=== PATIENT | female | born 1975 | race Caucasian/White ===

== ENCOUNTER 2016-10-23 22:01 | Emergency (ER) | payer OTHER ==
[2016-10-23] MEDS ORDERED: methylPREDNISolone NA SUCC 125 MG/2 ML VIAL ONE (22:20)
[2016-10-23] MEDS ORDERED: FAMOTIDINE 20 MG/50 ML IVPB 50 ML IVPB ONE (22:20)
[2016-10-23 22:24] VITALS: BMI 27.3
--- NOTE | 2016-10-23 22:29 | PDOC ---
History of Present Illness - General History Source: Patient Exam Limitations: No Limitations - History of Present Illness Initial Comments: 10/23/16 22:34 Patient is a 41 year old female with no significant past medical history who presents to the ED with hours worth of SOB, diffuse rash and decreased breath sounds. Patient states that she drank soy milk after which she developed the following symptoms. Patient has no known medication allergies. She states that this has never happened before. <Gisela Alaniz - Last Filed: 10/23/16 22:34> - General History Source: Patient <GopalSonny garrett - Last Filed: 10/24/16 03:30> - General Chief Complaint: Allergic Reaction Stated Complaint: ALLERGIC REACTION Time Seen by Provider: 10/23/16 22:29 Past History <Gisela Alaniz - Last Filed: 10/23/16 22:34> - Psycho/Social/Smoking Cessation Hx Anxiety: No Suicidal Ideation: No Smoking History: Never smoked Have you smoked in the past 12 months: No Information on smoking cessation initiated: No Hx Alcohol Use: No Drug/Substance Use Hx: No Substance Use Type: None <Sonny Rosa - Last Filed: 10/24/16 03:30> - Past Medical History Allergies/Adverse Reactions: Allergies Allergy/AdvReac Type Severity Reaction Status Date / Time No Known Allergies Allergy Verified 10/24/16 00:22 Home Medications: Ambulatory Orders Diphenhydramine HCl [Benadryl Capsules -] 25 mg PO TID #30 capsule 10/24/16 Methylprednisolone [Medrol Dose Elver] 4 mg PO ASDIR #21 tablet 10/24/16 Review of Systems - Review of Systems Able to Perform ROS?: Yes Comments:: 10/23/16 22:35 CONSTITUTIONAL: Absent: fever, chills, diaphoresis, generalized weakness, malaise, loss of appetite HEENT: Absent: rhinorrhea, nasal congestion, throat pain, throat swelling, difficulty swallowing, mouth swelling, ear pain, eye pain, visual Changes CARDIOVASCULAR: Absent: chest pain, syncope, palpitations, irregular heart rate, lightheadedness , peripheral edema RESPIRATORY: Present: SOB, decreased breath sounds. Absent: cough, dyspnea with exertion, orthopnea, wheezing, stridor, hemoptysis GASTROINTESTINAL: Absent: abdominal pain, abdominal distension, nausea, vomiting, diarrhea, constipation, melena, hematochezia GENITOURINARY: Absent: dysuria, frequency, urgency, hesitancy, hematuria, flank pain, genital pain MUSCULOSKELETAL: Absent: myalgia, arthralgia, joint swelling SKIN: Present: rash Absent: itching, pallor HEMATOLOGIC/IMMUNOLOGIC: Absent: easy bleeding, easy bruising, lymphadenopathy, frequent infections ENDOCRINE: Absent: unexplained weight gain, unexplained weight loss, heat intolerance, cold intolerance NEUROLOGIC: Absent: headache, focal weakness or paresthesias, dizziness, unsteady gait, seizure, mental status changes, bladder or bowel incontinence PSYCHIATRIC: Absent: anxiety, depression, suicidal or homicidal ideation, hallucinations. <Gisela Alaniz - Last Filed: 10/23/16 22:34> *Physical Exam - Vital Signs Last Vital Signs Temp Pulse Resp BP Pulse Ox 97.1 F L 77 18 86/53 71 L 10/23/16 22:17 10/23/16 22:17 10/23/16 22:17 10/23/16 22:17 10/23/16 22:17 - Physical Exam Comments: 10/23/16 22:36 GENERAL: Well developed, well nourished. Awake and alert. In no acute distress. HEENT: Normocephalic, atraumatic. PERRLA, EOMI. No conjunctival pallor. Sclerae are non -icteric. Moist mucous membranes. Oropharynx is clear. NECK: Supple. Full ROM. No JVD. Carotid pulses 2+ and symmetric, without bruits. No thyromegaly. No lymphadenopathy. CARDIOVASCULAR: Regular rate and rhythm. No murmurs, rubs, or gallops. Distal pulses are 2+ and symmetric. PULMONARY: (+)Decrease breath sounds bilaterally. Lungs clear to auscultation bilaterally. No wheezing, rales or rhonchi. ABDOMINAL: Soft. Non-tender. Non-distended. No rebound or guarding. No organomegaly. Normoactive bowel sounds. MUSCULOSKELETAL Normal range of motion at all joints. No bony deformities or tenderness. No CVA tenderness. EXTREMITIES: No cyanosis. No clubbing. No edema. No calf tenderness. SKIN: (+)Diffuse urticaria over the face, chest, trunk. Warm and dry. Normal capillary refill. No jaundice. NEUROLOGICAL: Alert, awake, appropriate. Cranial nerves 2-12 intact. No deficits to light touch and temperature in face, upper extremities and lower extremities. No motor deficits in the in face, upper extremities and lower extremities. Normoreflexic in the upper and lower extremities. Normal speech. Toes are downgoing bilaterally. PSYCHIATRIC: Cooperative. Good eye contact. Appropriate mood and affect. <Gisela Alaniz - Last Filed: 10/23/16 22:34> - Vital Signs Last Vital Signs Temp Pulse Resp BP Pulse Ox 97.1 F L 77 18 86/53 71 L 10/23/16 22:17 10/23/16 22:17 10/23/16 22:17 10/23/16 22:17 10/23/16 22:17 <Sonny Rosa - Last Filed: 10/24/16 03:30> ED Treatment Course - LABORATORY CBC & Chemistry Diagram: 10/23/16 22:30 10/23/16 22:30 <Sonny Rosa - Last Filed: 10/24/16 03:30> Medical Decision Making - Medical Decision Making 10/24/16 03:30 Dr. Rosa: The scribe's documentation has been prepared under my direction and personally reviewed by me in its entirery. I confirm that the note above accurately reflects all work, treatment, procedures, and medical decision making performed by me. <Sonny Rosa - Last Filed: 10/24/16 03:30> *DC/Admit/Observation/Transfer - Attestations Scribe Attestion: 10/23/16 22:37 Documentation prepared by JOE Tompkins, acting as medical communication specialist for Sonny Rosa DO. <Gisela Alaniz - Last Filed: 10/23/16 22:34> - Discharge Dispostion Admit: No <Sonny Rosa - Last Filed: 10/24/16 03:30> Diagnosis at time of Disposition: Allergic reaction Qualifiers: Encounter type: initial encounter Qualified Code(s): T78.40XA - Allergy, unspecified, initial encounter - Discharge Dispostion Disposition: HOME Condition at time of disposition: Stable - Prescriptions Prescriptions: Diphenhydramine HCl [Benadryl Capsules -] 25 mg PO TID #30 capsule Methylprednisolone [Medrol Dose Elver] 4 mg PO ASDIR #21 tablet - Referrals Referrals: Kel Christine MD [Primary Care Provider] - - Patient Instructions Printed Discharge Instructions: DI for General Allergic Reactions Additional Instructions: take medication as directed. Drink plenty of fluids. Follow up with your doctor for eventual allergy testing Print Language: DANISH
[2016-10-23 22:50] LABS: BASOPHIL 0.4 % (0-2.0); EOSINOPHIL 1.6 % (0-4.5); MCH 29.8 pg (25.7-33.7); MCHC 33.3 g/dl (32.0-36.0); MEAN CELL VOLUME 89.3 fl (80-96); PLATELET COUNT 306 K/MM3 (134-434); RDW 12.9 % (11.6-15.6); WHITE BLOOD COUNT 9.9 K/mm3 (4.0-10.0)
[2016-10-23 23:08] LABS: INR 1.1 (0.82-1.09); PROTHROMBIN TIME (PATIENT) 12.1 SEC (9.98-11.88)
[2016-10-23 23:16] LABS: ALBUMIN 3.9 g/dl (3.4-5.0); ANION GAP 11 (8-16); BILIRUBIN,TOTAL 0.4 mg/dL (0.2-1.0); CALCIUM 8.8 mg/dL (8.5-10.1); CO2 24 mmol/L (21-32); CREATININE 0.8 mg/dL (0.55-1.02); GLUCOSE,RANDOM 130 mg/dL (74-106); MAGNESIUM 2.1 mg/dL (1.8-2.4); SGOT/AST 23 U/L (15-37); SGPT/ALT 29 U/L (12-78); TOT PROT 7.5 g/dl (6.4-8.2)
[2016-10-23 23:18] LABS: ALK PHOS 51 U/L (45-117); TROPONIN I < 0.02 ng/ml (0.00-0.05)
[2016-10-24 03:47] VITALS: BP 121/72; PULSE 73; TEMP 97.9
== END 2016-10-24 03:47 | disposition home or self-care (01) ==
LOC: JER 22:01 → SUPCPDRO 22:01 → JER 10-24 03:47
DX: L50.0 Allergic urticaria (principal); T78.40XA Allergy, unspecified, initial encounter
CPT/HCPCS: 36415; 80053; 82550; 82553; 83735; 84484; 84703; 85025; 85610; 99283-25

== ENCOUNTER 2017-01-08 16:01 | Emergency (ER) | payer OTHER ==
[2017-01-08 16:26] VITALS: BP 111/61; PULSE 60; TEMP 98.3; BMI 27.3
[2017-01-08] MEDS ORDERED: KETOROLAC TROMETHAMINE 30 MG/1 ML VIAL IM ONE (17:05)
[2017-01-08] MEDS ORDERED: KETOROLAC TROMETHAMINE 30 MG/1 ML VIAL ONE (17:07)
--- NOTE | 2017-01-08 17:12 | PDOC ---
History of Present Illness - General Chief Complaint: Pain, Acute Stated Complaint: SHOULDER PAIN Time Seen by Provider: 01/08/17 16:56 History Source: Patient Exam Limitations: No Limitations - History of Present Illness Initial Comments: 01/08/17 17:06 CC left upper back pain x 2 days post lifting at work Past History - Past Medical History Allergies/Adverse Reactions: Allergies Allergy/AdvReac Type Severity Reaction Status Date / Time No Known Allergies Allergy Verified 01/08/17 16:25 Home Medications: Ambulatory Orders Diphenhydramine HCl [Benadryl Capsules -] 25 mg PO TID #30 capsule 10/24/16 Methylprednisolone [Medrol Dose Elver] 4 mg PO ASDIR #21 tablet 10/24/16 - Psycho/Social/Smoking Cessation Hx Anxiety: No Suicidal Ideation: No Smoking History: Never smoked Have you smoked in the past 12 months: No Hx Alcohol Use: No Drug/Substance Use Hx: No Substance Use Type: None Review of Systems - Review of Systems Constitutional: No: Chills, Fever HEENTM: No: Symptoms Reported Respiratory: No: Symptoms reported, Cough Musculoskeletal: Yes: Muscle Pain (lright upper back) *Physical Exam - Vital Signs Last Vital Signs Temp Pulse Resp BP Pulse Ox 98.3 F 60 18 111/61 99 01/08/17 16:25 01/08/17 16:25 01/08/17 16:25 01/08/17 16:25 01/08/17 16:25 - Physical Exam General Appearance: No: Appropriately Dressed HEENT: positive: TMs Normal Neck: negative: Tender (right lower lateral neck with spasm) Respiratory/Chest: positive: Lungs Clear. negative: Chest Tender Cardiovascular: positive: Regular Rhythm, Regular Rate Musculoskeletal: positive: Other (tender to area upper right trapezius with spasm) Medical Decision Making - Medical Decision Making 01/08/17 17:09 30mg toradol given in ED; pt driving will RX naprosyn and flexeril *DC/Admit/Observation/Transfer Diagnosis at time of Disposition: Muscle strain of chest wall Qualifiers: Encounter type: initial encounter Qualified Code(s): S29.011A - Strain of muscle and tendon of front wall of thorax, initial encounter - Discharge Dispostion Disposition: HOME Condition at time of disposition: Stable Admit: No - Patient Instructions Additional Instructions: Don'T drive while taking Flexeril; return to ED neil if no better
== END 2017-01-08 17:17 | disposition home or self-care (01) ==
LOC: JERFT 16:01
PROC: 3E0233Z Introduction of Anti-inflammatory into Muscle, Percutaneous Approach (ICD-10-PCS; principal; 2017-01-08)
DX: S29.011A Strain of muscle and tendon of front wall of thorax, initial encounter (principal); X50.0XXA Overexertion from strenuous movement or load, initial encounter; Y93.89 Activity, other specified; Y92.9 Unspecified place or not applicable
CPT/HCPCS: 96372; 99281-25

== ENCOUNTER 2018-07-04 09:51 | Emergency (ER) | payer OTHER ==
[2018-07-04 09:56] VITALS: BP 114/58; PULSE 64; TEMP 97.9; BMI 29.2
[2018-07-04] MEDS ORDERED: KETOROLAC TROMETHAMINE 30 MG/1 ML VIAL IM ONE (10:29)
[2018-07-04] MEDS ORDERED: CYCLOBENZAPRINE HCL 10 MG TABLET (FP) PO ONE (10:29)
[2018-07-04] MEDS ORDERED: KETOROLAC TROMETHAMINE 30 MG/1 ML VIAL ONE (10:32)
[2018-07-04] MEDS ORDERED: CYCLOBENZAPRINE HCL 10 MG TABLET (FP) ONE (10:32)
--- NOTE | 2018-07-04 11:32 | PDOC ---
History of Present Illness - General Chief Complaint: Back Pain Stated Complaint: LOWER BACK PAIN Time Seen by Provider: 07/04/18 10:12 History Source: Patient Exam Limitations: No Limitations Past History - Past Medical History Allergies/Adverse Reactions: Allergies Allergy/AdvReac Type Severity Reaction Status Date / Time No Known Allergies Allergy Verified 07/04/18 09:56 Home Medications: Ambulatory Orders Cyclobenzaprine HCl [Flexeril -] 10 mg PO TID #21 tablet 07/04/18 COPD: No - Suicide/Smoking/Psychosocial Hx Smoking History: Never smoked Have you smoked in the past 12 months: No Information on smoking cessation initiated: No Hx Alcohol Use: No Drug/Substance Use Hx: No Substance Use Type: None *Physical Exam - Vital Signs Last Vital Signs Temp Pulse Resp BP Pulse Ox 97.9 F 64 18 114/58 L 99 07/04/18 09:54 07/04/18 09:54 07/04/18 09:54 07/04/18 09:54 07/04/18 09:54 - Physical Exam General Appearance: No: Apparent Distress Neck: positive: Supple Respiratory/Chest: positive: Lungs Clear, Normal Breath Sounds. negative: Respiratory Distress Cardiovascular: positive: Regular Rhythm, Regular Rate, S1, S2. negative: Murmur Gastrointestinal/Abdominal: positive: Normal Bowel Sounds, Soft. negative: Tender, Distended, Guarding, Rebound Musculoskeletal: positive: Decreased Range of Motion (On movement of spine (dominic with spine flexion)), Other (+TTP along L lumbar paraspinal muscles, negative SLR test). negative: CVA Tenderness, Vertebral Tenderness Integumentary: positive: Normal Color Neurologic: positive: Fully Oriented, Alert, Normal Mood/Affect Moderate Sedation - Procedure Monitoring Vital Signs: Procedure Monitoring Vital Signs Temperature 97.9 F 07/04/18 09:54 Pulse Rate 64 07/04/18 09:54 Respiratory Rate 18 07/04/18 09:54 Blood Pressure 114/58 L 07/04/18 09:54 O2 Sat by Pulse Oximetry (%) 99 07/04/18 09:54 ED Treatment Course - Medications Given in the ED: ED Medications Discontinued Medications Generic Name Dose Route Start Last Admin Trade Name Freq PRN Reason Stop Dose Admin Cyclobenzaprine HCl 10 mg 07/04/18 10:29 07/04/18 10:37 Flexeril - PO 07/04/18 10:30 10 mg ONCE ONE Administration Ketorolac Tromethamine 30 mg 07/04/18 10:29 07/04/18 10:37 Toradol Injection - IM 07/04/18 10:30 30 mg ONCE ONE Administration Medical Decision Making - Medical Decision Making 43 y/o F with no sig pmh presents with LBP radiating down front of legs x 3 days. Denies trauma, heavy lifting. Farrell pain while walking to bed. Denies numbness/tingling/weakness of extremities, saddle/groin paresthesia, bowel/ bladder incontinence, fever, sob, cp, abd pain, n/v, urinary complaints Patient given Toradol and Flexeril with improvement in pain Likely muscle strain Stable for dc 07/04/18 11:28 *DC/Admit/Observation/Transfer Diagnosis at time of Disposition: Lower back pain Qualifiers: Chronicity: acute Back pain laterality: left Sciatica presence: without sciatica Qualified Code(s): M54.5 - Low back pain - Discharge Dispostion Disposition: HOME Condition at time of disposition: Improved Decision to Admit order: No - Prescriptions Prescriptions: Cyclobenzaprine HCl [Flexeril -] 10 mg PO TID #21 tablet - Referrals Referrals: Kel Christine MD [Primary Care Provider] - 2 Days - Patient Instructions Printed Discharge Instructions: DI for Low Back Pain Additional Instructions: Thank you for choosing [facility]. It was a pleasure taking care of you. You may take Motrin 600 mg every 4 hours by mouth as needed for mild to moderate pain. Take Motrin with food. Take Flexeril as needed for muscle spasms. This medication can also make you drowsy so please be cautious with driving or performing heavy physical work. Apply warm compresses Return to the Emergency Department if your symptoms worsen or persist, you have fever, shortness of breath, chest pain, severe abdominal pain, vomiting, dizziness, weakness of extremities (arms and/or legs), unable to walk, numbness around groin, unable to control bowel or bladder movements or other concerning symptoms. - Post Discharge Activity
== END 2018-07-04 11:38 | disposition home or self-care (01) ==
LOC: JERFT 09:51
PROC: 3E0233Z Introduction of Anti-inflammatory into Muscle, Percutaneous Approach (ICD-10-PCS; principal; 2018-07-04)
DX: M54.5 Low back pain (principal)
CPT/HCPCS: 99281-25

== ENCOUNTER → 2018-11-17 | Day surgery (SDC) | payer OTHER ==
--- NOTE | 2018-11-18 16:04 | PATH ---
Surgical Pathology Report Patient Name: ALANNA BOYER [facility]. Rec. #: [id number] /Age/Gender: 1975 (Age: 43) / F Account: [id number] Location: [facility] Taken: 11/17/2018 Received: 11/17/2018 Reported: 11/18/2018 Physicians: Adriane Aquino M.D. Specimen(s) Received LEFT BREAST 11:00 Clinical History Nonpalpable lesion Mammographic findings/ultrasound findings: Highly suspicious/malignant 1.9 cm Final Diagnosis BREAST, LEFT, 11:00, ULTRASOUND GUIDED CORE BIOPSY: INVASIVE DUCTAL CARCINOMA, MODERATELY DIFFERENTIATED, MEASURING AT LEAST 1.2 CM IN THIS MATERIAL. Results of Estrogen Receptor (ER) and Progesterone Receptor (PA) studies performed on block "1" at [facility] are as follows: ER (clone [id number] mouse monoclonal antibody by [employer]):>99% nuclear staining with strong intensity (Positive). PA (clone16 mouse monoclonal antibody by [employer]):>95% nuclear staining with moderate to strong intensity (Positive). Results of Her2 (IHC) & Ki-67 studies are pending and will be reported separately. Comment: Immunohistochemical stains performed and interpreted at [facility] show the tumor is positive for E-Cadherin, supportive of ductal phenotype. Myoepithelial markers (SMM-HC) and p63 show loss of myoepithelial cells in the invasive carcinoma. Positive and negative controls (internal if applicable) show appropriate results. Formalin fixation and cold ischemic times are within current ASCO/CAP recommendations for ER, PA and Her2 testing. Electronically Signed Deepali Goldman M.D. Addendum Reported: 11/19/2018 Addendum Diagnosis Results of Her2 (IHC) & Ki-67 studies performed on block "1" at [place], [place] ([id number]) are as follows: Her2 IHC (EP3 from [employer], formerly known as [id number], using [employer] Polymer Refine detection kit): 1+ (Negative). Ki-67: ~10% (Low proliferative index). Findings discussed with Dr. Aquino. Positive and negative controls (internal if applicable) show appropriate results. Deepali Goldman M.D. Gross Description Received in formalin labeled "left breast 11:00," are 2 egorge-yellow, cylindrical portions of fibroadipose tissue averaging 1.5 cm in length and 0.1 cm in diameter. The specimens are submitted in toto in one cassette. Time to formalin fixation: Less than one minute Total formalin fixation time: Approximately 6 hours. 11/17/201811/17/2018
== END | disposition home or self-care (01) ==
LOC: JRADUS 11:53 → JRADUS-SUR 11:53 → EDSTATUS 12:00
PROVIDERS: ATTEND Family Medicine Geriatric Medicine
PROC: 0HBU3ZX Excision of Left Breast, Percutaneous Approach, Diagnostic (ICD-10-PCS; principal; 2018-11-17)
DX: C50.812 Malignant neoplasm of overlapping sites of left female breast (principal)
CPT/HCPCS: 19083; 76642-TC-LT; 77065-TC; 87899; 88305-TC; 88341-TC; 88342-TC; A4648

== ENCOUNTER 2019-02-03 08:26 | Day surgery (SDC) | payer OTHER ==
--- NOTE | 2019-01-26 10:19 | HP ---
Admitting History and Physical - Primary Care Physician PCP: Yuliet Gaytan - Admission Chief Complaint: Left breast cancer History of Present Illness: Patient is a 43 yo female who was noted to have a spiculated asymmetric left central lesion with microcalcifications that was confirmed as a left 2 cm 11 oclock mass on US. Patient underwent an US guided core bx on 11/17/2018 which was c/w invasive ductal ER/NH positive, Her 2 negative. The MRI was c/w known cancer without evidence of multifocal or contralateral dz. History Source: Patient Limitations to Obtaining History: No Limitations - Past Medical History Additional Past Medical History: None - Past Surgical History Past Surgical History: Yes: None - Smoking History Smoking history: Never smoked Have you smoked in the past 12 months: No - Alcohol/Substance Use Hx Alcohol Use: No Home Medications - Allergies Allergies/Adverse Reactions: Allergies Allergy/AdvReac Type Severity Reaction Status Date / Time No Known Allergies Allergy Verified 07/04/18 09:56 - Home Medications Home Medications: Ambulatory Orders Cyclobenzaprine HCl [Flexeril -] 10 mg PO TID #21 tablet 07/04/18 Family Disease History - Family Disease History Other Family History: Paternal aunt-breast cancer at 70 yo Review of Systems - Review of Systems Constitutional: reports: No Symptoms Psychiatric: reports: Anxiety Physical Examination Constitutional: Yes: Well Nourished Cardiovascular: Yes: WNL Respiratory: Yes: WNL Breast(s): Yes: Other (Breasts without skin changes, nipple discharge or retraction. An asymmetric nodule was noted at 11 oclock otherwise bilaterally dense and diffusely nodular. No suspicious adenopathy noted bilaterally.) Problem List - Problems (1) Breast cancer, left Code(s): C50.912 - MALIGNANT NEOPLASM OF UNSPECIFIED SITE OF LEFT FEMALE BREAST Qualifiers: Estrogen receptor status: positive Patient sex: female Assessment/Plan Left breast WE with NL, snbx with lymphoscintogram, possible andx.
[2019-01-26 10:44] VITALS: BMI 26.5
[2019-02-03] MEDS ORDERED: ISOSULFAN BLUE 10 MG/ML VIAL SQ ONE (12:04)
[2019-02-03] MEDS ORDERED: LIDOCAINE HCL 1% PRESERVATIVE FREE - 30ML VIAL ONE (12:04)
[2019-02-03] MEDS ORDERED: BUPIVACAINE HCL/PF 2.5 MG/ML - 30 ML VIAL IJ ONE (12:04)
[2019-02-03] MEDS ORDERED: GUM MASTIC/STORAX/MSAL/ALCOHOL 1 DRP DROPSBTL MC ONE (12:17)
[2019-02-03] MEDS ORDERED: PROPOFOL 20 ML ONE (13:24)
[2019-02-03] MEDS ORDERED: MIDAZOLAM HCL 2 MG/2 ML SINGLE DOSE VIAL ONE (13:24)
[2019-02-03] MEDS ORDERED: ONDANSETRON 4 MG/2 ML VIAL ONE ×2 (13:24→15:23)
[2019-02-03] MEDS ORDERED: DEXAMETHASONE SOD PHOSPHATE 4 MG/1 ML VIAL ONE (13:24)
[2019-02-03] MEDS ORDERED: KETOROLAC TROMETHAMINE 30 MG/1 ML VIAL ONE (15:23)
[2019-02-03] MEDS ORDERED: ONDANSETRON 4 MG/2 ML VIAL IVPUSH PRN ×2 (15:26→15:35)
[2019-02-03] MEDS ORDERED: KETOROLAC TROMETHAMINE 30 MG/1 ML VIAL IVPUSH PRN (15:26)
[2019-02-03] MEDS ORDERED: DEXTROSE 5%-0.45% SALINE 1,000 ML IV SCH (15:30)
[2019-02-03] MEDS ORDERED: oxyCODONE HCL 5 MG TABLET PO PRN ×2 (15:36)
[2019-02-03 15:40] VITALS: TEMP 97.8
--- NOTE | 2019-02-03 16:30 | OP ---
DATE OF OPERATION: 02/03/2019 PREOPERATIVE DIAGNOSIS: Left breast cancer. POSTOPERATIVE DIAGNOSIS: Left breast cancer. PROCEDURE: Left mammographically localized wide excision with sentinel lymph node biopsy. ANESTHESIA: General intubated. ATTENDING SURGEON: Adriana Gaytan MD HIDE TRIMMER: ARTURO Starkey ESTIMATED BLOOD LOSS: Minimal. COMPLICATIONS: None. PROCEDURE: Patient was made aware of the risks and benefits of the procedure and consented. She was placed in the supine position and, after general anesthesia was induced, the patient was intubated. Isosulfan blue 1%, 2.5 mL were locally infiltrated into the peritumoral tissues. The operative site was then prepped and draped in the usual sterile fashion. Waiting approximately 10 minutes with gentle manual compression a curvilinear incision was made in the left axilla. Using blunt and sharp dissection tissues were dissected down and cluster of blue and hot lymph nodes were identified and surgically excised and submitted to pathology for permanent sectioning. Palpation of the rest of the axilla and interrogation with the Neoprobe found no suspicious nodes or hot spots. The wound was copiously irrigated with normal saline. Hemostasis maintained by electrocautery. The wound was then closed with deep 3-0 Vicryl followed by a running subcuticular 4-0 Monocryl. The left breast was then approached. A curvilinear periareolar incision was then made. Using electrocautery thick skin flaps were made to the needle. Needle was withdrawn through the puncture site and the wire through the wound. Tissues around the wire were then sharply excised and submitted with a short suture superior, long suture lateral. Specimen radiograph confirmed the presence of the index lesion. Specimen submitted for permanent sectioning. Additional segments were taken superior, inferior, medial, lateral, deep and anterior with clips at the new margin. The wound was copiously irrigated with normal saline. Hemostasis maintained by electrocautery. The wound was then closed with interrupted [id number] sutures in multiple layers with 2-0 Vicryl followed by deep 3-0 Vicryl followed by running subcuticular 4-0 Monocryl. Steri-Strips, sterile dressing and a compression bra were then applied, and the patient having tolerated the procedure well was transferred to the recovery room in good condition. ADRIANA GAYTAN M.D. [id number]
[2019-02-03] MEDS ORDERED: oxyCODONE HCL 5 MG TABLET ONE (17:09)
[2019-02-03 17:19] VITALS: BP 118/62; PULSE 50
--- NOTE | 2019-02-09 12:13 | PATH ---
Surgical Pathology Report Patient Name: ALANNA BOYER [facility]. Rec. #: [id number] /Age/Gender: 1975 (Age: 43) / F Account: [id number] Location: [facility] AMBULATORY Taken: 02/03/2019 Received: 02/03/2019 Reported: 02/09/2019 Physicians: Yuliet Gaytan M.D. Specimen(s) Received A: LEFT AXILLARY SENTINEL NODE B: LEFT BREAST WIDE EXCISION C: LEFT BREAST SUPERIOR MARGIN D: LEFT BREAST MEDIAL MARGIN E: LEFT BREAST ANTERIOR MARGIN F: LEFT BREAST INFERIOR MARGIN G: LEFT BREAST LATERAL MARGIN H: LEFT BREAST DEEP MARGIN Clinical History Invasive ductal carcinoma Final Diagnosis A. lymph nodES, left axillary sentinel, excision: Four lymph nodes, negative for metastatic carcinoma (0/4). B. breast, left, wide excision: Invasive ductal carcinoma, moderately differentiated (tubulE score: 3/3, nuclear grade: 2/3, mitotic score: 1/3, total score: 6/9; Slocomb grade 2). Invasive carcinoma measures 2.3 cm in greatest dimension, microscopically. Ductal carcinoma in situ (DCIS), solid and cribriform type, intermediate nuclear grade, with focal necrosis and associated calcifications is present admixed with invasive carcinoma. Invasive carcinoma extends to the anterior, deep, lateral AND MEDIAL margins. DCIS is close to (< 1 mm) the deep and lateral margins. see specimens C-h FOR final margins. No lymphovascular invasion is identified. Remaining breast tissue shows fibrocystic and columnar cell changes. Pathologic stage (pTNM): pT2 pN0. see also invasive carcinoma K. Summary. C. breast, left, superior margin, excision: Benign breast tissue. D. breast, left, medial margin, excision: FOCAL invasive ductal carcinoma and radial scar. Surgical margins are uninvolved by INVASIVE CARCINOMA; carcinoma is at 3 mm from the CLOSEST NEW margin. (SEE NOTE) Note: Myoepithelial immunohistochemical markers (SMM-HC and p63, performed at [facility] on block D3) demonstrate the lack of myoepithelial cells in the foci of invasive carcinoma. This finding supports the diagnosis. E. breast, left, anterior margin, excision: Benign breast tissue. F. breast, left, inferior margin, excision: Benign breast tissue. G. breast, left, lateral margin, excision: focal atypical lobular hyperplasia (ALH). (See note). Note: The foci of ALH are negative for E-Cadherin (performed at [facility]), which supports lobular phenotype. H. breast, left, deep margin, excision: Benign fibroadipose tissue and skeletal muscle. Comments Breast Invasive Carcinoma: Surgical Pathology Case Summary (Based on AJCC TNM 8 th edition) Procedure _X_ Excision (less than total mastectomy) Specimen Laterality _X_ Left Tumor Size _X_ Greatest dimension of largest invasive focus >1 mm (millimeters): 23 mm Histologic Type _X_ Invasive carcinoma of no special type (ductal, not otherwise specified) Histologic Grade (Slocomb Histologic Score) Glandular (Acinar)/Tubular Differentiation _X_ Score 3 (<10% of tumor area forming glandular/tubular structures) Nuclear Pleomorphism _X_ Score 2 Mitotic Rate _X_ Score 1 Overall Grade _X_ Grade 2 (scores of 6 or 7) Tumor Focality _X_ Single focus of invasive carcinoma Ductal Carcinoma In Situ (DCIS) _X_ DCIS is present in specimen _X_ Negative for extensive intraductal component (EIC) Margins Invasive Carcinoma Margins _X_ Uninvolved by invasive carcinoma Distance from closest margin (millimeters): 3 mm from final medial margin (D) DCIS Margins _X_ Uninvolved by DCIS Distance from closest margin (millimeters): < 1 mm from deep and lateral margin in wide excision; final deep (H) and lateral (G) margins are negative for DCIS. Regional Lymph Nodes _X_ Uninvolved by tumor cells Number of Lymph Nodes Examined: 4 Number of [place] Nodes Examined: 4 Treatment Effect _X_ No known presurgical therapy Lymphovascular Invasion _X_ Not identified Pathologic Stage Classification (pTNM, AJCC 8th Edition) Primary Tumor (Invasive Carcinoma) (pT) _X_ pT2: Tumor >20 mm but =50 mm in greatest dimension Regional Lymph Nodes (pN) Category (pN) _X_ pN0: No regional lymph node metastasis identified or ITCs only Biomarker Studies Results of ER and OK studies performed on or prior biopsy ([id number]) at [facility] are as follows: ER (clone [id number] mouse monoclonal antibody by [employer]) : >99 % nuclear staining with strong intensity (positive). OK (clone16 mouse monoclonal antibody by [employer]): > 95 % nuclear staining with strong intensity (positive). Results of Her2 (IHC) & Ki-67 studies performed on prior biopsy ([id number]) at [place], [place] ([id number]) are as follows: Her2 IHC (EP3 from [employer], formerly known as [id number], using [employer] Polymer Refine detection kit): 1+ (negative). Ki67: ~10 (low proliferative index). Electronically Signed Tyra Vigil M.D. Gross Description A. Received in formalin, labeled "left axillary sentinel lymph node" consist 3 lymph nodes ranging from 0.4-1.5 cm in greatest dimension. The specimen is entirely submitted in 3 cassettes. 1- one bisected lymph node. 2- two whole lymph nodes. B. Received in formalin, labeled "left breast wide excision" ,is a 3.5 x 3.5 x 2.0 cm. george-yellow, irregular, portion of fibroadipose tissue with a needle localization wire present. There is a short suture marking the superior aspect and a long suture marking the lateral aspect, per the surgeon. There is no skin present. The specimen is inked as follows: superior- red; lateral- blue; inferior -orange; medial- green; anterior- yellow; deep- black. Sectioning reveals a 2.3 x 1.6 x 1.0 cm ill-defined firm mass abutting the anterior, deep and medial margins. The specimen is serially sectioned from medial to lateral, and entirely submitted in 11 cassettes as follows: 1- medial margin; 2-9- serially sectioned specimen with mass in #6-9; 10,11- lateral margin. Time to formalin fixation: Not given Total formalin fixation time: Approximately 30 hours. C. Received in formalin labeled "left breast superior margin ", is a 1.5 x 1.0 x 0.5 cm portion of fibroadipose tissue with a clip marked the new margin, per the surgeon. The new margin is inked blue. The specimen is serially sectioned and entirely submitted in 1 cassette. D. Received in formalin labeled "left breast medial margin ", is a 2.5 x 2.1 x 0.7 cm portion of fibroadipose tissue with a clip marked the new margin, per the surgeon. The new margin is inked blue. The specimen is serially sectioned and entirely submitted in 3 cassettes. E. Received in formalin labeled "left breast anterior margin ", is a 2.5 x 1.7 x 0.3 cm portion of fibroadipose tissue with a clip marked the new margin, per the surgeon. The new margin is inked blue. The specimen is serially sectioned and entirely submitted in 2 cassettes. F. Received in formalin labeled "left breast inferior margin ", is a 2.5 x 2.0 x 0.4 cm portion of fibroadipose tissue with a clip marked the new margin, per the surgeon. The new margin is inked blue. The specimen is serially sectioned and entirely submitted in 3 cassettes. G. Received in formalin labeled "left breast lateral margin ", is a 2.0 x 2.0 x 0.4 cm portion of fibroadipose tissue with a clip marked the new margin, per the surgeon. The new margin is inked blue. The specimen is serially sectioned and entirely submitted in 2 cassettes. H. Received in formalin labeled "left breast deep margin ", is a 2.5 x 2.2 x 0.4 cm portion of fibroadipose tissue with a clip marked the new margin, per the surgeon. The new margin is inked blue. The specimen is serially sectioned and entirely submitted in 2 cassettes. KWEdy/02/05/2019 nohelia02/05/2019
== END 2019-02-03 17:39 | disposition home or self-care (01) ==
LOC: FASU 08:26
PROVIDERS: ATTEND Surgery Surgical Oncology
PROC: 0HBU0ZZ Excision of Left Breast, Open Approach (ICD-10-PCS; principal; 2019-02-03 14:09)
DX: C50.912 Malignant neoplasm of unspecified site of left female breast (principal)
CPT/HCPCS: 19281; 78195-TC; 84703; 88307-TC; 88341-TC; 88342-TC; 94760; A9541

== ENCOUNTER 2021-09-27 18:41 | Emergency (ER) | payer OTHER ==
[2021-09-27 18:46] VITALS: BP 132/64; PULSE 67; TEMP 97.7; BMI 27.4
[2021-09-27] MEDS ORDERED: LIDOCAINE 5% TOPICAL PATCH TP ONE (19:53)
[2021-09-27] MEDS ORDERED: diazePAM 2 MG TABLET PO ONE (19:53)
[2021-09-27] MEDS ORDERED: KETOROLAC TROMETHAMINE 30 MG/1 ML VIAL IM ONE (19:53)
[2021-09-27] MEDS ORDERED: LIDOCAINE 5% TOPICAL PATCH ONE (20:31)
[2021-09-27] MEDS ORDERED: KETOROLAC TROMETHAMINE 30 MG/1 ML VIAL ONE (20:32)
[2021-09-27] MEDS ORDERED: diazePAM 2 MG TABLET ONE (20:32)
[2021-09-27] MEDS ORDERED: LIDOCAINE PATCH REMOVAL MC SCH (22:00)
== END 2021-09-27 21:36 | disposition home or self-care (01) ==
LOC: JER 18:41
PROC: 3E0233Z Introduction of Anti-inflammatory into Muscle, Percutaneous Approach (ICD-10-PCS; principal; 2021-09-27)
DX: M54.50 Low back pain, unspecified (principal); M54.2 Cervicalgia; V79.49XA Driver of bus injured in collision with other motor vehicles in traffic accident, initial encounter
CPT/HCPCS: 71046-TC-FY; 93005; 93010; 99284-25

== ENCOUNTER 2022-10-16 11:46 | Day surgery (SDC) | payer OTHER ==
[~2022-10-16 11:46] MED LIST: LEUPROLIDE ACETATE 3.75 MG/KIT KIT IM ONE; traMADol HCL 50 MG TABLET PO ONE
[2022-10-16 12:41] LABS: BASO % 0.7 % (0-2.0); EOS % 6.1 % (0-4.5); HEMATOCRIT 34.5 % (32.4-45.2); HEMOGLOBIN 11.6 GM/dL (10.7-15.3); LYMPH % 18.7 % (8-40); MCH 27.1 pg (25.7-33.7); MCHC 33.7 g/dl (32.0-36.0); MEAN CELL VOLUME 80.5 fl (80-96); MEAN PLT VOLUME 8.5 fl (7.5-11.1); MONO % 9.3 % (3.8-10.2); NEUT % 65.2 % (42.8-82.8); PLATELET COUNT 344 10^3/uL (134-434); RBC 4.29 M/mm3 (3.60-5.2); WHITE BLOOD COUNT 6.4 K/mm3 (4.0-10.0)
[2022-10-16 13:03] LABS: POTASSIUM 3.8 mmol/L (3.5-5.1)
[2022-10-16 13:11] LABS: ALBUMIN 3.8 g/dl (3.4-5.0); BLOOD UREA NITROGEN 11.8 mg/dL (7-18); CALCIUM 8.8 mg/dL (8.5-10.1); MAGNESIUM 2.1 mg/dL (1.8-2.4)
[2022-10-16 13:13] LABS: BILIRUBIN,TOTAL 0.3 mg/dL (0.2-1); TOT PROT 7.7 g/dl (6.4-8.2)
[2022-10-16 13:14] LABS: BILIRUBIN,DIRECT 0.1 mg/dL (0.0-0.2); CREATININE 0.6 mg/dL (0.55-1.3)
[2022-10-16 17:34] VITALS: BP 136/76; PULSE 70; RESP 20; TEMP 98.6
[2022-10-17 08:18] LABS: FOLLICLE STIMULATING HORMONE 70.1 mIU/mL (.); LUTEINIZING HORMONE 56.5 mIU/mL (.)
== END 2022-10-16 12:00 | disposition home or self-care (01) ==
LOC: J7W 11:46 → JONCCHEMO 11:46
PROVIDERS: ATTEND Internal Medicine Hematology & Oncology
DX: Z51.11 Encounter for antineoplastic chemotherapy (principal); C50.812 Malignant neoplasm of overlapping sites of left female breast; Z17.0 Estrogen receptor positive status [ER+]
CPT/HCPCS: 36415; 80048; 80076; 82306; 82378; 82670; 82728; 83001; 83002; 83540; 83550; 83735; 84703; 85025; 86300; 96402; J1950

== ENCOUNTER 2022-10-24 10:19 | Day surgery (SDC) | payer OTHER ==
[~2022-10-24 10:19] MED LIST changes: +IRON SUCROSE INJECTION 300 MG in SODIUM CHLORIDE 250 ML IVPB ONE; -LEUPROLIDE ACETATE 3.75 MG/KIT KIT IM ONE; -traMADol HCL 50 MG TABLET PO ONE
[2022-10-24 15:55] VITALS: BP 124/82; PULSE 68; RESP 18; TEMP 98.2
== END 2022-10-24 12:35 | disposition home or self-care (01) ==
LOC: JONCNONCHE 10:19 → J7W 10:20 → JONCNONCHE 12:35
PROVIDERS: ATTEND Internal Medicine Hematology & Oncology
PROC: 3E033GC Introduction of Other Therapeutic Substance into Peripheral Vein, Percutaneous Approach (ICD-10-PCS; principal; 2022-10-24)
DX: E61.1 Iron deficiency (principal)
CPT/HCPCS: 96365; J1756

== ENCOUNTER 2022-10-30 10:48 | Day surgery (SDC) | payer OTHER ==
[2022-10-30 16:44] VITALS: TEMP 98.6
[2022-10-30 16:58] VITALS: BP 124/58; PULSE 60; RESP 20
== END 2022-10-30 13:00 | disposition home or self-care (01) ==
LOC: J7W 10:48 → JONCNONCHE 10:48
PROVIDERS: ATTEND Internal Medicine Hematology & Oncology
PROC: 3E033GC Introduction of Other Therapeutic Substance into Peripheral Vein, Percutaneous Approach (ICD-10-PCS; principal; 2022-10-30)
DX: E61.1 Iron deficiency (principal)
CPT/HCPCS: 96365; J1756

== ENCOUNTER 2022-11-15 10:09 | Day surgery (SDC) | payer OTHER ==
[~2022-11-15 10:09] MED LIST changes: +LEUPROLIDE ACETATE 3.75 MG/KIT KIT IM ONE
[2022-11-15] MEDS ORDERED: LEUPROLIDE ACETATE 3.75 MG/KIT KIT IM ONE (10:45)
[2022-11-15] MEDS ORDERED: IRON SUCROSE INJECTION 300 MG in SODIUM CHLORIDE 250 ML IVPB ONE (10:45)
[2022-11-15 11:16] LABS: BASO % 0.9 % (0-2.0); EOS % 3.6 % (0-4.5); HEMATOCRIT 35.8 % (32.4-45.2); HEMOGLOBIN 11.8 GM/dL (10.7-15.3); LYMPH % 34.2 % (8-40); MCH 27.6 pg (25.7-33.7); MEAN CELL VOLUME 83.7 fl (80-96); MEAN PLT VOLUME 8.8 fl (7.5-11.1); NEUT % 55.3 % (42.8-82.8); PLATELET COUNT 321 10^3/uL (134-434); RBC 4.27 M/mm3 (3.60-5.2); RDW 17.7 % (11.6-15.6); WHITE BLOOD COUNT 5.8 K/mm3 (4.0-10.0)
[2022-11-15 11:37] LABS: POTASSIUM 3.9 mmol/L (3.5-5.1)
[2022-11-15 11:42] LABS: ALBUMIN 3.8 g/dl (3.4-5.0); CALCIUM 9.1 mg/dL (8.5-10.1)
[2022-11-15 11:43] LABS: BLOOD UREA NITROGEN 11.4 mg/dL (7-18)
[2022-11-15 11:45] LABS: BILIRUBIN,DIRECT 0.1 mg/dL (0.0-0.2); CREATININE 0.6 mg/dL (0.55-1.3)
[2022-11-15 11:47] LABS: BILIRUBIN,TOTAL 0.5 mg/dL (0.2-1); TOT PROT 7.5 g/dl (6.4-8.2)
[2022-11-15 17:05] VITALS: TEMP 98.1
[2022-11-15 17:07] VITALS: BP 127/64; PULSE 67; RESP 20
[2022-11-16 08:07] LABS: FOLLICLE STIMULATING HORMONE 4.3 mIU/mL (.); LUTEINIZING HORMONE 2.5 mIU/mL (.)
== END 2022-11-15 13:15 | disposition home or self-care (01) ==
LOC: JONCNONCHE 10:09 → J7W 10:10 → JONCNONCHE 13:15
PROVIDERS: ATTEND Internal Medicine Hematology & Oncology
PROC: 3E033GC Introduction of Other Therapeutic Substance into Peripheral Vein, Percutaneous Approach (ICD-10-PCS; principal; 2022-11-15)
DX: E61.1 Iron deficiency (principal)
CPT/HCPCS: 36415; 80048; 80076; 82378; 82670; 83001; 83002; 83735; 84703; 85025; 86300; 96365; J1756; J1950

== ENCOUNTER 2022-12-06 10:17 | Day surgery (SDC) | payer OTHER ==
[2022-12-06 11:13] LABS: BASO % 0.5 % (0-2.0); EOS % 2.2 % (0-4.5); HEMATOCRIT 37.9 % (32.4-45.2); HEMOGLOBIN 12.4 GM/dL (10.7-15.3); LYMPH % 39.4 % (8-40); MCH 28.1 pg (25.7-33.7); MCHC 32.7 g/dl (32.0-36.0); MEAN CELL VOLUME 85.9 fl (80-96); MEAN PLT VOLUME 8.8 fl (7.5-11.1); MONO % 7.3 % (3.8-10.2); NEUT % 50.6 % (42.8-82.8); PLATELET COUNT 316 10^3/uL (134-434); RBC 4.41 M/mm3 (3.60-5.2); RDW 17.9 % (11.6-15.6); WHITE BLOOD COUNT 5.6 K/mm3 (4.0-10.0)
[2022-12-06 11:42] LABS: POTASSIUM 4.1 mmol/L (3.5-5.1)
[2022-12-06 11:47] LABS: BLOOD UREA NITROGEN 13.1 mg/dL (7-18); CALCIUM 9.4 mg/dL (8.5-10.1)
[2022-12-06 11:48] LABS: ALBUMIN 3.8 g/dl (3.4-5.0); MAGNESIUM 2.2 mg/dL (1.8-2.4)
[2022-12-06 11:50] LABS: CREATININE 0.6 mg/dL (0.55-1.3)
[2022-12-06 11:52] LABS: BILIRUBIN,TOTAL 0.2 mg/dL (0.2-1); TOT PROT 7.7 g/dl (6.4-8.2)
[2022-12-06 17:33] VITALS: BP 146/73; PULSE 64; RESP 16; TEMP 98.6
[2022-12-07 08:07] LABS: FOLLICLE STIMULATING HORMONE 4.8 mIU/mL (.)
== END 2022-12-06 13:00 | disposition home or self-care (01) ==
LOC: JONCNONCHE 10:17 → J7W 10:20 → JONCNONCHE 13:00
PROVIDERS: ATTEND Internal Medicine Hematology & Oncology
PROC: 3E01305 Introduction of Other Antineoplastic into Subcutaneous Tissue, Percutaneous Approach (ICD-10-PCS; principal; 2022-12-06)
PROC: 3E033GC Introduction of Other Therapeutic Substance into Peripheral Vein, Percutaneous Approach (ICD-10-PCS; 2022-12-06)
DX: Z51.11 Encounter for antineoplastic chemotherapy (principal); C50.812 Malignant neoplasm of overlapping sites of left female breast; Z17.0 Estrogen receptor positive status [ER+]; E61.1 Iron deficiency; E55.9 Vitamin D deficiency, unspecified
CPT/HCPCS: 36415; 80053; 82306; 82378; 82670; 82728; 83001; 83002; 83540; 83550; 83735; 84703; 85025; 86300; 96365; 96402; J1756; J1950

== ENCOUNTER 2023-01-28 10:55 | Day surgery (SDC) | payer OTHER ==
[2023-01-28] MEDS ORDERED: LEUPROLIDE ACETATE 3.75 MG/KIT KIT IM ONE (11:30)
[2023-01-28 11:40] LABS: BASO % 0.5 % (0-2.0); EOS % 1.9 % (0-4.5); HEMATOCRIT 37.9 % (32.4-45.2); HEMOGLOBIN 12.7 GM/dL (10.7-15.3); LYMPH % 37.2 % (8-40); MCH 29.4 pg (25.7-33.7); MCHC 33.4 g/dl (32.0-36.0); MONO % 10.5 % (3.8-10.2); NEUT % 49.9 % (42.8-82.8); PLATELET COUNT 272 10^3/uL (134-434); RDW 14.8 % (11.6-15.6); WHITE BLOOD COUNT 5.4 K/mm3 (4.0-10.0)
[2023-01-28 11:57] LABS: POTASSIUM 3.8 mmol/L (3.5-5.1)
[2023-01-28 11:59] LABS: ALBUMIN 3.7 g/dl (3.4-5.0); BLOOD UREA NITROGEN 11.9 mg/dL (7-18); CALCIUM 8.8 mg/dL (8.5-10.1)
[2023-01-28 12:03] LABS: CREATININE 0.6 mg/dL (0.55-1.3)
[2023-01-28 12:06] LABS: BILIRUBIN,TOTAL 0.4 mg/dL (0.2-1); TOT PROT 7.5 g/dl (6.4-8.2)
[2023-01-28 15:26] VITALS: BP 142/70; PULSE 53; RESP 18
[2023-01-29 07:55] VITALS: TEMP 97.8
== END 2023-01-28 12:00 | disposition home or self-care (01) ==
LOC: JONCCHEMO 10:55 → J7W 10:56 → JONCCHEMO 12:00
PROVIDERS: ATTEND Internal Medicine Hematology & Oncology
DX: Z51.11 Encounter for antineoplastic chemotherapy (principal); C50.812 Malignant neoplasm of overlapping sites of left female breast; Z17.0 Estrogen receptor positive status [ER+]
CPT/HCPCS: 36415; 80053; 82306; 82378; 82670; 82728; 83001; 83002; 83540; 83550; 83735; 85025; 86300; 96402; J1950

== ENCOUNTER 2023-03-25 10:34 | Day surgery (SDC) | payer OTHER ==
[~2023-03-25 10:34] MED LIST changes: -IRON SUCROSE INJECTION 300 MG in SODIUM CHLORIDE 250 ML IVPB ONE
[2023-03-25 11:15] LABS: BASO % 0.9 % (0-2.0); EOS % 2.3 % (0-4.5); HEMATOCRIT 36.9 % (32.4-45.2); HEMOGLOBIN 13.3 GM/dL (10.7-15.3); LYMPH % 35.4 % (8-40); MCH 31.6 pg (25.7-33.7); MCHC 35.9 g/dl (32.0-36.0); MEAN PLT VOLUME 8.2 fl (7.5-11.1); MONO % 5.9 % (3.8-10.2); NEUT % 55.5 % (42.8-82.8); PLATELET COUNT 284 10^3/uL (134-434); RBC 4.19 M/mm3 (3.60-5.2); RDW 13.3 % (11.6-15.6); WHITE BLOOD COUNT 5.5 K/mm3 (4.0-10.0)
[2023-03-25 11:30] LABS: POTASSIUM 3.6 mmol/L (3.5-5.1)
[2023-03-25 11:31] LABS: CALCIUM 9.3 mg/dL (8.5-10.1)
[2023-03-25 11:32] LABS: BLOOD UREA NITROGEN 9.2 mg/dL (7-18)
[2023-03-25 11:35] LABS: CREATININE 0.6 mg/dL (0.55-1.3)
[2023-03-25 11:37] LABS: BILIRUBIN,TOTAL 0.6 mg/dL (0.2-1)
[2023-03-25 16:55] VITALS: BP 121/65; PULSE 71; RESP 20; TEMP 98.1
[2023-03-27 22:07] LABS: CARCINOEMBRYONIC ANTIGEN 0.8 ng/mL (0.0-4.7); LUTEINIZING HORMONE 0.4 mIU/mL (.)
== END 2023-03-25 13:30 | disposition home or self-care (01) ==
LOC: JONCCHEMO 10:34 → J7W 10:36 → JONCCHEMO 13:30
PROVIDERS: ATTEND Internal Medicine Hematology & Oncology
DX: Z51.11 Encounter for antineoplastic chemotherapy (principal); C50.812 Malignant neoplasm of overlapping sites of left female breast
CPT/HCPCS: 36415; 80053; 82306; 82378; 82670; 82728; 83001; 83002; 83540; 83550; 83735; 84703; 85025; 86300; 96402; J1950

== ENCOUNTER 2023-04-22 10:56 | Day surgery (SDC) | payer OTHER ==
[2023-04-22 11:58] LABS: BASO % 0.6 % (0-2.0); EOS % 2.1 % (0-4.5); HEMATOCRIT 40.1 % (32.4-45.2); HEMOGLOBIN 13.3 GM/dL (10.7-15.3); LYMPH % 37.2 % (8-40); MCH 30.1 pg (25.7-33.7); MCHC 33.2 g/dl (32.0-36.0); MEAN CELL VOLUME 90.8 fl (80-96); MEAN PLT VOLUME 8.4 fl (7.5-11.1); MONO % 7.3 % (3.8-10.2); NEUT % 52.8 % (42.8-82.8); PLATELET COUNT 307 10^3/uL (134-434); RBC 4.41 M/mm3 (3.60-5.2); RDW 13.7 % (11.6-15.6); WHITE BLOOD COUNT 5.8 K/mm3 (4.0-10.0)
[2023-04-22 12:15] LABS: POTASSIUM 3.6 mmol/L (3.5-5.1)
[2023-04-22 12:18] LABS: ALBUMIN 3.8 g/dl (3.4-5.0); BLOOD UREA NITROGEN 16.3 mg/dL (7-18); CALCIUM 8.8 mg/dL (8.5-10.1)
[2023-04-22 12:20] LABS: MAGNESIUM 2.1 mg/dL (1.8-2.4)
[2023-04-22 12:21] LABS: CREATININE 0.7 mg/dL (0.55-1.3); IRON SERUM 100 ug/dL (50-175); TOTAL IRON BINDING CAPACITY 516 ug/dL (250-450)
[2023-04-22 12:23] LABS: BILIRUBIN,TOTAL 0.4 mg/dL (0.2-1); TOT PROT 7.8 g/dl (6.4-8.2)
[2023-04-22 16:54] VITALS: BP 110/74; PULSE 64; RESP 18; TEMP 97.8
[2023-04-23 10:07] LABS: LUTEINIZING HORMONE 0.3 mIU/mL (.)
== END 2023-04-22 12:00 | disposition home or self-care (01) ==
LOC: JONCCHEMO 10:56 → J7W 10:58 → JONCCHEMO 12:00
PROVIDERS: ATTEND Internal Medicine Hematology & Oncology
DX: Z51.11 Encounter for antineoplastic chemotherapy (principal); C50.812 Malignant neoplasm of overlapping sites of left female breast; Z17.0 Estrogen receptor positive status [ER+]
CPT/HCPCS: 36415; 80053; 82306; 82378; 82670; 82728; 83001; 83002; 83540; 83550; 83735; 84703; 85025; 86300; 96402; J1950

== ENCOUNTER 2023-05-20 10:29 | Day surgery (SDC) | payer OTHER ==
[2023-05-20 11:02] LABS: BASO % 0.6 % (0-2.0); EOS % 1.9 % (0-4.5); HEMATOCRIT 39.4 % (32.4-45.2); HEMOGLOBIN 13.3 GM/dL (10.7-15.3); LYMPH % 37.4 % (8-40); MCH 30.1 pg (25.7-33.7); MCHC 33.7 g/dl (32.0-36.0); MEAN CELL VOLUME 89.4 fl (80-96); MEAN PLT VOLUME 8.2 fl (7.5-11.1); MONO % 7.5 % (3.8-10.2); NEUT % 52.6 % (42.8-82.8); PLATELET COUNT 297 10^3/uL (134-434); RBC 4.41 M/mm3 (3.60-5.2); RDW 13.5 % (11.6-15.6); WHITE BLOOD COUNT 6.8 K/mm3 (4.0-10.0)
[2023-05-20 11:38] LABS: POTASSIUM 3.5 mmol/L (3.5-5.1)
[2023-05-20 11:42] LABS: ALBUMIN 4.1 g/dl (3.4-5.0); BLOOD UREA NITROGEN 10.9 mg/dL (7-18); CALCIUM 9.6 mg/dL (8.5-10.1); MAGNESIUM 2.3 mg/dL (1.8-2.4)
[2023-05-20 11:45] LABS: CREATININE 0.6 mg/dL (0.55-1.3)
[2023-05-20 11:46] LABS: TOT PROT 7.7 g/dl (6.4-8.2)
[2023-05-20 11:47] LABS: BILIRUBIN,TOTAL 0.5 mg/dL (0.2-1)
[2023-05-20 16:54] VITALS: BP 131/74; PULSE 62; RESP 18; TEMP 98.1
[2023-05-21 08:06] LABS: FOLLICLE STIMULATING HORMONE 8.6 mIU/mL (.); LUTEINIZING HORMONE 0.4 mIU/mL (.)
== END 2023-05-20 11:20 | disposition home or self-care (01) ==
LOC: JONCCHEMO 10:29 → J7W 10:31 → JONCCHEMO 11:20
PROVIDERS: ATTEND Internal Medicine Hematology & Oncology
DX: Z51.11 Encounter for antineoplastic chemotherapy (principal); C50.812 Malignant neoplasm of overlapping sites of left female breast; Z17.0 Estrogen receptor positive status [ER+]
CPT/HCPCS: 36415; 80053; 82306; 82378; 82670; 82728; 83001; 83002; 83540; 83550; 83735; 84703; 85025; 86300; 96402; J1950

== ENCOUNTER 2023-06-26 10:04 | Day surgery (SDC) | payer OTHER ==
[2023-06-26 10:49] LABS: BASO % 0.4 % (0-2.0); EOS % 1.6 % (0-4.5); HEMATOCRIT 38.8 % (32.4-45.2); HEMOGLOBIN 13.2 GM/dL (10.7-15.3); LYMPH % 34.1 % (8-40); MCH 30.3 pg (25.7-33.7); MEAN CELL VOLUME 89.3 fl (80-96); MONO % 7.8 % (3.8-10.2); NEUT % 56.1 % (42.8-82.8); PLATELET COUNT 385 10^3/uL (134-434); RBC 4.35 M/mm3 (3.60-5.2); RDW 13.7 % (11.6-15.6); WHITE BLOOD COUNT 6.4 K/mm3 (4.0-10.0)
[2023-06-26 11:07] LABS: POTASSIUM 3.8 mmol/L (3.5-5.1)
[2023-06-26 11:09] LABS: ALBUMIN 3.8 g/dl (3.4-5.0); CALCIUM 9.7 mg/dL (8.5-10.1)
[2023-06-26 11:10] LABS: BLOOD UREA NITROGEN 13.1 mg/dL (7-18); MAGNESIUM 2.2 mg/dL (1.8-2.4)
[2023-06-26 11:12] LABS: CREATININE 0.7 mg/dL (0.55-1.3)
[2023-06-26 11:14] LABS: BILIRUBIN,TOTAL 0.5 mg/dL (0.2-1)
[2023-06-26 15:47] VITALS: BP 107/75; PULSE 68; RESP 18; TEMP 98.1
[2023-06-27 08:06] LABS: CARCINOEMBRYONIC ANTIGEN 0.8 ng/mL (0.0-4.7); LUTEINIZING HORMONE 0.6 mIU/mL (.)
== END 2023-06-26 11:10 | disposition home or self-care (01) ==
LOC: J7W 10:04 → JONCCHEMO 10:04
PROVIDERS: ATTEND Internal Medicine Hematology & Oncology
DX: Z51.11 Encounter for antineoplastic chemotherapy (principal); C50.812 Malignant neoplasm of overlapping sites of left female breast; Z17.0 Estrogen receptor positive status [ER+]
CPT/HCPCS: 36415; 80053; 82306; 82378; 82670; 82728; 83001; 83002; 83540; 83550; 83735; 84703; 85025; 86300; 96402; J1950

== ENCOUNTER 2023-07-24 10:55 | Day surgery (SDC) | payer OTHER ==
[2023-07-24 11:28] LABS: BASO % 0.6 % (0-2.0); EOS % 1.4 % (0-4.5); HEMATOCRIT 39.3 % (32.4-45.2); HEMOGLOBIN 13.2 GM/dL (10.7-15.3); LYMPH % 35.1 % (8-40); MCH 30.1 pg (25.7-33.7); MCHC 33.7 g/dl (32.0-36.0); MEAN CELL VOLUME 89.4 fl (80-96); MONO % 7.3 % (3.8-10.2); NEUT % 55.6 % (42.8-82.8); PLATELET COUNT 337 10^3/uL (134-434); RDW 13.7 % (11.6-15.6)
[2023-07-24] MEDS: LEUPROLIDE ACETATE 3.75 MG/KIT KIT IM ONE (11:43)
[2023-07-24 11:50] LABS: POTASSIUM 3.9 mmol/L (3.5-5.1)
[2023-07-24 11:52] LABS: CALCIUM 9.2 mg/dL (8.5-10.1)
[2023-07-24 11:53] LABS: ALBUMIN 3.8 g/dl (3.4-5.0); BLOOD UREA NITROGEN 12.3 mg/dL (7-18); MAGNESIUM 2.2 mg/dL (1.8-2.4)
[2023-07-24 11:55] LABS: CREATININE 0.7 mg/dL (0.55-1.3)
[2023-07-24 11:57] LABS: BILIRUBIN,TOTAL 0.4 mg/dL (0.2-1)
[2023-07-24 12:25] VITALS: BP 143/72; PULSE 62; RESP 18; TEMP 98.1
[2023-07-25 08:05] LABS: FOLLICLE STIMULATING HORMONE 8.9 mIU/mL (.); LUTEINIZING HORMONE 0.5 mIU/mL (.)
== END 2023-07-24 12:10 | disposition home or self-care (01) ==
LOC: JONCCHEMO 10:55 → J7W 10:55 → JONCCHEMO 12:10
PROVIDERS: ATTEND Internal Medicine Hematology & Oncology
PROC: 3E013GC Introduction of Other Therapeutic Substance into Subcutaneous Tissue, Percutaneous Approach (ICD-10-PCS; principal; 2023-07-24)
DX: C50.812 Malignant neoplasm of overlapping sites of left female breast (principal)
CPT/HCPCS: 36415; 80053; 82306; 82378; 82670; 82728; 83001; 83002; 83540; 83550; 83735; 84703; 85025; 86300; 96372; J1950

== ENCOUNTER 2023-08-21 09:50 | Day surgery (SDC) | payer OTHER ==
[2023-08-21] MEDS: LEUPROLIDE ACETATE 3.75 MG/KIT KIT IM ONE (10:20)
[2023-08-21 10:35] LABS: BASO % 0.6 % (0-2.0); EOS % 1.9 % (0-4.5); HEMATOCRIT 37.6 % (32.4-45.2); HEMOGLOBIN 12.8 GM/dL (10.7-15.3); LYMPH % 28.9 % (8-40); MCH 30.1 pg (25.7-33.7); MCHC 34.2 g/dl (32.0-36.0); MEAN CELL VOLUME 88.1 fl (80-96); MEAN PLT VOLUME 8.2 fl (7.5-11.1); MONO % 4.5 % (3.8-10.2); NEUT % 64.1 % (42.8-82.8); PLATELET COUNT 362 10^3/uL (134-434); RBC 4.26 M/mm3 (3.60-5.2); WHITE BLOOD COUNT 8.8 K/mm3 (4.0-10.0)
[2023-08-21 11:04] LABS: POTASSIUM 3.9 mmol/L (3.5-5.1)
[2023-08-21 11:07] LABS: BLOOD UREA NITROGEN 12.7 mg/dL (7-18); CALCIUM 9.2 mg/dL (8.5-10.1)
[2023-08-21 11:08] LABS: ALBUMIN 3.7 g/dl (3.4-5.0); MAGNESIUM 2.2 mg/dL (1.8-2.4)
[2023-08-21 11:10] LABS: CREATININE 0.7 mg/dL (0.55-1.3)
[2023-08-21 11:11] LABS: BILIRUBIN,TOTAL 0.6 mg/dL (0.2-1)
[2023-08-21 11:12] LABS: TOT PROT 7.7 g/dl (6.4-8.2)
[2023-08-21 16:33] VITALS: BP 149/81; PULSE 68; RESP 18; TEMP 97.6
[2023-08-22 08:11] LABS: CARCINOEMBRYONIC ANTIGEN 0.9 ng/mL (0.0-4.7); FOLLICLE STIMULATING HORMONE 8.5 mIU/mL (.); LUTEINIZING HORMONE < 0.3 mIU/mL (.)
== END 2023-08-21 11:15 | disposition home or self-care (01) ==
LOC: JONCCHEMO 09:50 → J7W 09:50 → JONCCHEMO 11:15
PROVIDERS: ATTEND Internal Medicine Hematology & Oncology
PROC: 3E013GC Introduction of Other Therapeutic Substance into Subcutaneous Tissue, Percutaneous Approach (ICD-10-PCS; principal; 2023-08-21)
DX: C50.812 Malignant neoplasm of overlapping sites of left female breast (principal)
CPT/HCPCS: 36415; 80053; 82306; 82378; 82670; 82728; 83001; 83002; 83540; 83550; 83735; 84703; 85025; 86300; 96372; J1950

== ENCOUNTER 2023-09-16 10:32 | Day surgery (SDC) | payer OTHER ==
[2023-09-16 11:17] LABS: BASO % 0.8 % (0-2.0); HEMATOCRIT 37.2 % (32.4-45.2); HEMOGLOBIN 12.4 GM/dL (10.7-15.3); LYMPH % 34.3 % (8-40); MCH 29.8 pg (25.7-33.7); MCHC 33.4 g/dl (32.0-36.0); MEAN CELL VOLUME 89.3 fl (80-96); MEAN PLT VOLUME 8.4 fl (7.5-11.1); MONO % 6.2 % (3.8-10.2); NEUT % 56.7 % (42.8-82.8); PLATELET COUNT 261 10^3/uL (134-434); RBC 4.17 M/mm3 (3.60-5.2); RDW 13.7 % (11.6-15.6)
[2023-09-16] MEDS: LEUPROLIDE ACETATE 3.75 MG/KIT KIT IM ONE (11:20)
[2023-09-16 11:56] LABS: POTASSIUM 3.5 mmol/L (3.5-5.1)
[2023-09-16 11:59] LABS: ALBUMIN 3.6 g/dl (3.4-5.0); BLOOD UREA NITROGEN 14.3 mg/dL (7-18); MAGNESIUM 2.1 mg/dL (1.8-2.4)
[2023-09-16 12:02] LABS: CREATININE 0.7 mg/dL (0.55-1.3)
[2023-09-16 12:04] LABS: BILIRUBIN,TOTAL 0.6 mg/dL (0.2-1); TOT PROT 7.4 g/dl (6.4-8.2)
[2023-09-16 17:03] VITALS: BP 92/61; PULSE 69; RESP 18; TEMP 98.1
[2023-09-17 08:09] LABS: FOLLICLE STIMULATING HORMONE 8.2 mIU/mL (.); LUTEINIZING HORMONE 0.5 mIU/mL (.)
== END 2023-09-16 11:30 | disposition home or self-care (01) ==
LOC: JONCCHEMO 10:32 → J7W 10:34 → JONCCHEMO 11:30
PROVIDERS: ATTEND Internal Medicine Hematology & Oncology
PROC: 3E013GC Introduction of Other Therapeutic Substance into Subcutaneous Tissue, Percutaneous Approach (ICD-10-PCS; principal; 2023-09-16)
DX: C50.812 Malignant neoplasm of overlapping sites of left female breast (principal)
CPT/HCPCS: 36415; 80053; 82306; 82378; 82670; 82728; 83001; 83002; 83540; 83550; 83735; 84703; 85025; 86300; 96372; J1950

== ENCOUNTER 2023-10-14 10:27 | Day surgery (SDC) | payer OTHER ==
[2023-10-14] MEDS: LEUPROLIDE ACETATE 3.75 MG/KIT KIT IM ONE (10:59)
[2023-10-14 11:24] LABS: BASO % 1.2 % (0-2.0); EOS % 5.6 % (0-4.5); HEMATOCRIT 37.9 % (32.4-45.2); HEMOGLOBIN 12.9 GM/dL (10.7-15.3); LYMPH % 28.5 % (8-40); MCH 30.1 pg (25.7-33.7); MCHC 34.1 g/dl (32.0-36.0); MEAN CELL VOLUME 88.5 fl (80-96); MEAN PLT VOLUME 8.4 fl (7.5-11.1); MONO % 6.8 % (3.8-10.2); NEUT % 57.9 % (42.8-82.8); PLATELET COUNT 277 10^3/uL (134-434); RBC 4.28 M/mm3 (3.60-5.2); RDW 13.9 % (11.6-15.6); WHITE BLOOD COUNT 6.6 K/mm3 (4.0-10.0)
[2023-10-14 11:43] LABS: CHLORIDE 107 mmol/L (98-107); POTASSIUM 3.7 mmol/L (3.5-5.1); SODIUM 139 mmol/L (136-145)
[2023-10-14 11:45] LABS: CALCIUM 8.7 mg/dL (8.5-10.1)
[2023-10-14 11:46] LABS: ALBUMIN 3.6 g/dl (3.4-5.0); ANION GAP 6 mmol/L (4-13); BLOOD UREA NITROGEN 15.4 mg/dL (7-18); CO2 27 mmol/L (21-32); GLUCOSE,RANDOM 82 mg/dL (74-106); MAGNESIUM 2.1 mg/dL (1.8-2.4)
[2023-10-14 11:49] LABS: CREATININE 0.7 mg/dL (0.55-1.3); SGOT/AST 19 U/L (15-37); SGPT/ALT 29 U/L (13-61)
[2023-10-14 11:50] LABS: TOT PROT 7.5 g/dl (6.4-8.2)
[2023-10-14 11:51] LABS: BILIRUBIN,TOTAL 0.5 mg/dL (0.2-1)
[2023-10-14 11:52] LABS: ALK PHOS 77 U/L (45-117)
[2023-10-14 12:08] LABS: IRON SERUM 79 ug/dL (50-175); TOTAL IRON BINDING CAPACITY 351 ug/dL (250-450)
[2023-10-14 16:03] VITALS: BP 140/68; PULSE 67; RESP 18; TEMP 97.7
[2023-10-15 08:12] LABS: FOLLICLE STIMULATING HORMONE 9.5 mIU/mL (.); LUTEINIZING HORMONE < 0.3 mIU/mL (.)
== END 2023-10-14 11:10 | disposition home or self-care (01) ==
LOC: JONCCHEMO 10:27 → J7W 10:27 → JONCCHEMO 11:10
PROVIDERS: ATTEND Internal Medicine Hematology & Oncology
PROC: 3E013GC Introduction of Other Therapeutic Substance into Subcutaneous Tissue, Percutaneous Approach (ICD-10-PCS; principal; 2023-10-14)
DX: C50.812 Malignant neoplasm of overlapping sites of left female breast (principal)
CPT/HCPCS: 36415; 80053; 82306; 82378; 82670; 82728; 83001; 83002; 83540; 83550; 83735; 84703; 85025; 86300; 96372; J1950

== ENCOUNTER 2023-11-11 11:02 | Day surgery (SDC) | payer OTHER ==
[2023-11-11] MEDS: LEUPROLIDE ACETATE 3.75 MG/KIT KIT IM ONE (11:50)
[2023-11-11 12:17] LABS: BASO % 0.7 % (0-2.0); EOS % 2.7 % (0-4.5); HEMATOCRIT 38.1 % (32.4-45.2); LYMPH % 39.4 % (8-40); MCH 30.1 pg (25.7-33.7); MCHC 34.2 g/dl (32.0-36.0); MEAN CELL VOLUME 88.1 fl (80-96); MEAN PLT VOLUME 8.4 fl (7.5-11.1); MONO % 7.1 % (3.8-10.2); NEUT % 50.1 % (42.8-82.8); PLATELET COUNT 306 10^3/uL (134-434); RBC 4.32 M/mm3 (3.60-5.2); RDW 14.1 % (11.6-15.6); WHITE BLOOD COUNT 6.9 K/mm3 (4.0-10.0)
[2023-11-11 12:36] LABS: CHLORIDE 107 mmol/L (98-107); POTASSIUM 3.8 mmol/L (3.5-5.1); SODIUM 140 mmol/L (136-145)
[2023-11-11 12:39] LABS: ALBUMIN 3.8 g/dl (3.4-5.0); CALCIUM 8.7 mg/dL (8.5-10.1)
[2023-11-11 12:40] LABS: ANION GAP 6 mmol/L (4-13); BLOOD UREA NITROGEN 11.1 mg/dL (7-18); CO2 27 mmol/L (21-32); GLUCOSE,RANDOM 88 mg/dL (74-106); MAGNESIUM 2.1 mg/dL (1.8-2.4)
[2023-11-11 12:42] LABS: IRON SERUM 70 ug/dL (50-175); TOTAL IRON BINDING CAPACITY 361 ug/dL (250-450)
[2023-11-11 12:43] LABS: CREATININE 0.7 mg/dL (0.55-1.3); SGOT/AST 19 U/L (15-37); SGPT/ALT 30 U/L (13-61)
[2023-11-11 12:45] LABS: ALK PHOS 77 U/L (45-117); BILIRUBIN,TOTAL 0.4 mg/dL (0.2-1); TOT PROT 7.7 g/dl (6.4-8.2)
[2023-11-11 15:24] VITALS: BP 161/81; PULSE 65; RESP 18; TEMP 97.9
[2023-11-12 07:11] LABS: CARCINOEMBRYONIC ANTIGEN 1.1 ng/mL (0.0-4.7)
[2023-11-12 08:09] LABS: FOLLICLE STIMULATING HORMONE 8.6 mIU/mL (.); LUTEINIZING HORMONE < 0.3 mIU/mL (.)
== END 2023-11-11 12:30 | disposition home or self-care (01) ==
LOC: JONCCHEMO 11:02 → J7W 11:02 → JONCCHEMO 12:30
PROVIDERS: ATTEND Internal Medicine Hematology & Oncology
PROC: 3E013GC Introduction of Other Therapeutic Substance into Subcutaneous Tissue, Percutaneous Approach (ICD-10-PCS; principal; 2023-11-11)
DX: C50.812 Malignant neoplasm of overlapping sites of left female breast (principal)
CPT/HCPCS: 36415; 80053; 82306; 82378; 82670; 82728; 83001; 83002; 83540; 83550; 83735; 84703; 85025; 86300; 93005; 93010; 96372; J1950